=== PATIENT | female | born 1970 | race Caucasian/White ===

== ENCOUNTER → 2021-05-05 | Outpatient (CLI) | payer OTHER | LOC: ORTHO 12:08 | PROVIDERS: ATTEND Orthopaedic Surgery | DX: S83.241A Other tear of medial meniscus, current injury, right knee, initial encounter (principal); X58.XXXA Exposure to other specified factors, initial encounter | CPT/HCPCS: 99203 ==

== ENCOUNTER 2021-06-01 12:27 | Outpatient (CLI) | payer OTHER ==
[~2021-06-01] VITALS: Ht 167.6 cm; Wt 148.9 kg
[2021-06-01] MEDS ORDERED: ROSU5TAB13 PO (13:05)
[2021-06-01] MEDS ORDERED: DULO60CA7 PO (13:05)
[2021-06-01] MEDS ORDERED: LOSA25TA41 PO (13:05)
[2021-06-01] MEDS ORDERED: NAPR220C11 PO (13:05)
== END 2021-06-01 13:12 | disposition home or self-care (01) ==
LOC: PREOP 12:27
PROVIDERS: ATTEND Orthopaedic Surgery
DX: Z01.818 Encounter for other preprocedural examination (principal)

== ENCOUNTER 2021-06-27 05:51 | Outpatient (CLI) | payer OTHER ==
[~2021-06-27] VITALS: Ht 167.7 cm; Wt 149.0 kg
[~2021-06-27 05:51] MED LIST: DULO60CA7 PO; LOSA25TA41 PO; NAPR220C11 PO; ROSU5TAB13 PO
== END 2021-06-28 11:25 | disposition home or self-care (01) ==
LOC: PREOP 05:51
PROVIDERS: ATTEND Orthopaedic Surgery
DX: Z01.818 Encounter for other preprocedural examination (principal)

== ENCOUNTER 2021-07-04 06:04 | Day surgery (SDC) | payer OTHER ==
[2021-07-04] VITALS (10 sets, daily range): BP systolic 103–132; BP diastolic 70–86
[~2021-07-04] VITALS: Ht 167.7 cm; Wt 149.0 kg
[2021-07-04] MEDS ORDERED: MIDAZOLAM 5 MG/5 ML (VERSED) VIAL INJ ONE (06:05)
[2021-07-04] MEDS ORDERED: proPOfol 200 MG/20 ML (DIPRIVAN) VIAL IV ONE ×2 (06:05→06:57)
[2021-07-04] MEDS ORDERED: ROCURONIUM 10 MG/ML 5 ML SYRINGE IV ONE (06:05)
[2021-07-04] MEDS ORDERED: ceFAZolin 2 GM IV Premixed 50 ML IV ONE (06:15)
[2021-07-04] MEDS ORDERED: LIDOCAINE/EPI 1%-1:200,000 (XYLOCAINE) 30 ML VIAL ONE (06:41)
[2021-07-04] MEDS ORDERED: ceFAZolin 2 GM IV Premixed 50 ML ONE (06:42)
[2021-07-04] MEDS: LACTATED RINGERS 1,000 ML IV PRN ×2 (06:44→09:18)
[2021-07-04] MEDS ORDERED: ONDANSETRON 4 MG/2 ML (SDV) Z0FRAN ONE ×2 (06:57→08:57)
[2021-07-04] MEDS ORDERED: LIDOCAINE PF 2% 5 ML (XYLOCAINE) VIAL ONE (06:57)
[2021-07-04] MEDS ORDERED: fentaNYL INJ 100 MCG/2 ML AMP ONE (06:57)
[2021-07-04] MEDS ORDERED: MIDAZOLAM 2 MG/2 ML (VERSED) VIAL ONE (06:57)
[2021-07-04] MEDS ORDERED: SEVOFLURANE (ULTANE) 15 ML INHAL SOLN ONE ×2 (06:57→08:35)
[2021-07-04] MEDS ORDERED: BUPIVACAINE 0.25% 30 ML (SENSORCAINE) VIAL ONE (08:12)
[2021-07-04] MEDS ORDERED: KETOROLAC 30 MG/ML VIAL ONE (08:39)
[2021-07-04] MEDS ORDERED: HYDROmorphone 2 MG/ML VIAL (DILAUDID) ONE (08:57)
[2021-07-04] MEDS: ONDANSETRON 4 MG/2 ML (SDV) Z0FRAN IVP PRN ×2 (08:58→09:55)
[2021-07-04] MEDS ORDERED: OXYC1TAB11 PO (08:58)
[2021-07-04] MEDS ORDERED: HYDROmorphone 2 MG/ML VIAL (DILAUDID) IV ONE (09:00)
--- NOTE | 2021-07-04 09:05 | Operative Report - Ortho ---
Operative Report Surgeon (s)/Hand Molder And Caster (s) Surgeon CHANELL CORRAL MD Hand Molder And Caster n/a Pre-Operative Diagnosis Right Knee Medial Meniscus Tear Post-Operative Diagnosis Right Knee Primary Osteoarthritis Operative Report Date of Procedure: Jul 04, 2021 Name of Procedure Performed: Right Knee Arthroscopy with Chondroplasty of the Medial Femoral Condyle Description & Findings After obtaining informed consent and marking the patient in the preoperative holding area, the patient was administered IV antibiotics and taken to the operating room. General anesthesia was induced. The left lower extremity was placed in the well leg shaikh and the right leg was placed in the arthroscopic shaikh. Surgical timeout was taken. The right lower extremity was prepped and draped in the usual sterile fashion. An anterolateral portal was established and a diagnostic knee arthroscopy was performed with the following findings: the patellofemoral portion of the joint demonstrated grade II change, the patella tracked well through the trochlear groove, the gutters were free of loose bodies, the medial meniscus appeared intact, grade II change in the medial compartment articular cartilage, ACL was intact, lateral compartment with intact meniscus and articular cartilage. An anteromedial portal was established. Probe was inserted and the medial meni scus was explored; the meniscus was intact throughout including the undersurface. Shaver was inserted and a medial femoral chondroplasty was performed and the articular cartilage fraying was stabilized. Probe was reinserted and confirmed that no further chondroplasty was necessary. The shaver was then taken into the suprapatellar pouch. Fraying on the undersuface of the patella was debrided to a stable border. Instruments were withdrawn. Wounds were closed with 3-0 nylon and dressed with xeroform, 4x4s, ABD, cast padding, and MARY ANNE wrap. Patient tolerated the procedure well and was stable to the recovery room. Anesthesia Type General Estimated Blood Loss minimal Specimen(s) collected/removed None CHANELL CORRAL MD Jul 04, 2021 09:05
--- NOTE | 2021-07-04 10:28 | Physical Therapy Ortho Eval ---
PT Orthopedic Evaluation Type of Surgery Knee Scope Prior Level of Function Locomotion (Upon Admit): Independent Established Durable Medical Eq: Crutches Subjective Subjective Patient reports "I'm just upset", however does not elaborate as to why. Entry Into Home: Stairs With Railing Steps Into Home: 1 Steps Inside Home: 15 Steps Accessories: Railing Present Motor Control Motor Control: Motor Control WNL ROM ROM: WFL, except focal deficit Strength Strength: WFL Transfer SCALE: Activities may be completed with or without assistive devices. 1-Ncnoxqsumt-cdslohp completes the activity by him/herself with no assistance from a helper. 5-Set-up or Clean-up Assistance-helper sets up or cleans up; patient completes activity. [place] assists only prior to or following the activity. 4-Supervision or Touching Assistance-helper provides verbal cues and/or touching/steadying and/or contact guard assistance as patient completes activity. Assistance may be provided throughout the activity or intermittently. 3-Partial/Moderate Assistance-helper does LESS THAN HALF the effort. [place] lifts, holds or supports trunk or limbs, but provides less than half the effort. 2-Substantial/Maximal Assistance-helper does MORE THAN HALF the effort. [place] lifts or holds trunk or limbs and provides more than half the effort. 3-Ovfbzslxl-vdubhy does ALL the effort. Patient does none of the effort to complete the activity. Or, the assistance of 2 or more helpers is required for the patient to complete the activity. If activity was not attempted, code reason: 7-Patient Refused. 9-Not Applicable-not attempted and the patient did not perform the activity before the current illness, exacerbation or injury. 10-Not Attempted due to Environmental Limitations-(lack of equipment, weather restraints, etc.). 88-Not Attempted due to Medical Conditions or Safety Concerns. Transfers (B, C, W/C) (QC): 6 Gait Gait Assistive Device: Crutches Right Lower Extremity: Right Weight Bearing Status RLE: Weight Bearing/Tolerated Gait (QC): 5 Distance: 50 feet Gait Level of Assist: 5 Summary/Comments Patient ascended/descended 1 step x 15 with Axillary crutches, with CGA and verbal cues for safety and proper procedure. After going down the 15th step, patient picked the crutches up and held them out to her sides and attempted to ambulate back to her room. After ~ 2 steps she began using the crutches again. Treatment Rendered Treatment: Gait Train, Step Train Assessment/Goals Goal Time Frame: 1 Visit Safe Ambulation: Yes Plan Treatment Plan: Discharge Time Time In: 1006 Time Out: 1020 Billed Treatment Time Visit, GAEL Fernandez PT Jul 04, 2021 10:28
--- NOTE | 2021-07-04 10:33 | Anesthesia-General Post-Op ---
General Patient Condition Mental Status/LOC: Same as Preop Cardiovascular: Satisfactory Nausea/Vomiting: Absent Respiratory: Satisfactory Pain: Controlled Complications: Absent Post Op Complications Complications None Follow Up Care/Instructions Patient Instructions None needed. Anesthesia/Patient Condition Patient Condition Patient is doing well, no complaints, stable vital signs, no apparent adverse anesthesia problems. No complications reported per nursing. [place] [facility] [place] Yes RICK CAMACHO CRNA Jul 04, 2021 10:33
[2021-07-04] MEDS ORDERED: SUCCINYLCHOLINE INJ 100 MG/5 ML SYR/VIAL INJ ONE (11:54)
== END 2021-07-04 10:20 | disposition home or self-care (01) ==
LOC: SDC 06:04
PROVIDERS: ATTEND Orthopaedic Surgery
DX: M17.11 Unilateral primary osteoarthritis, right knee (principal); S83.241A Other tear of medial meniscus, current injury, right knee, initial encounter; I10 Essential (primary) hypertension; F17.210 Nicotine dependence, cigarettes, uncomplicated; G47.33 Obstructive sleep apnea (adult) (pediatric); E66.01 Morbid (severe) obesity due to excess calories; F32.A Depression, unspecified; E78.5 Hyperlipidemia, unspecified; Z79.899 Other long term (current) drug therapy; Z68.43 Body mass index [BMI] 50.0-59.9, adult; Z98.890 Other specified postprocedural states
CPT/HCPCS: 87081

== ENCOUNTER → 2021-07-12 | Outpatient (CLI) | payer OTHER ==
[~2021-07-12] MED LIST changes: +OXYC1TAB11 PO
--- NOTE | 2021-07-12 12:50 | Diagnostic Imaging Report ---
INDICATION: Right foot pain AP, oblique, and lateral views of the right foot are obtained. No fracture or acute bony abnormality is seen. There is posterior and plantar calcaneal spurring. There are mild diffuse degenerative changes throughout the tarsal bones. IMPRESSION: Mild chronic changes with no acute abnormality of the right foot. Dictated by: Dictated on workstation # [id number]
== END ==
LOC: ORTHO 10:42
PROVIDERS: ATTEND Orthopaedic Surgery
DX: M79.671 Pain in right foot (principal)
CPT/HCPCS: 73630

== ENCOUNTER → 2021-09-06 | Outpatient (CLI) | payer OTHER | LOC: ORTHO 11:19 | PROVIDERS: ATTEND Orthopaedic Surgery | DX: M17.11 Unilateral primary osteoarthritis, right knee (principal) | CPT/HCPCS: 20610; G0463 ==

== ENCOUNTER → 2022-02-28 | Outpatient (CLI) | payer OTHER | LOC: ORTHO 09:07 | PROVIDERS: ATTEND Orthopaedic Surgery | DX: M17.0 Bilateral primary osteoarthritis of knee (principal) ==